=== PATIENT | female | born 2000 | race Caucasian/White ===

== ENCOUNTER 2023-05-11 19:04 | Outpatient (CLI) | payer BC, SELFPAY ==
[2023-05-11 18:24] LABS: Adenovirus,PCR Not Detected (NotDetected); Coronavirus 19, PCR Not Detected (NotDetected); Coronavirus 229E Not Detected (NotDetected); Coronavirus NL63 Not Detected (NotDetected); Coronavirus OC43 Not Detected (NotDetected); Coronovirus HKU1,PCR Not Detected (NotDetected); Human Metapneumovirus Not Detected (NotDetected); Influenza A, PCR Not Detected (NotDetected); Influenza AH1, 2009 Not Detected (NotDetected); Influenza AH1, PCR Not Detected (NotDetected); Influenza AH3,PCR Not Detected (NotDetected); Influenza B, PCR Not Detected (NotDetected); Parainfluenza 1, PCR Not Detected (NotDetected); Parainfluenza 2, PCR Not Detected (NotDetected); Parainfluenza 3, PCR Not Detected (NotDetected); Parainfluenza 4, PCR Not Detected (NotDetected); Respiratory Syncytial Virus Not Detected (NotDetected); Rhinovirus/Enterovirus Not Detected (NotDetected)
[2023-05-11 18:51] LABS: Basophils # 0.1 K/mm3 (0-0.2); Basophils % 1.1 % (0.1-2.0); Eosinophils # 0.1 K/mm3 (0.0-0.4); Eosinophils % 1.9 % (0.1-12.0); Hematocrit 45.2 % (37.0-47.0); Hemoglobin 14.5 g/dL (12.2-16.2); Lymphocytes # 1.6 K/mm3 (0.7-4.5); Lymphocytes % 24.7 % (10-50); Mean Corpuscular HGB Conc 31.9 g/dL (31.8-35.4); Mean Corpuscular Hemoglobin 29.9 pg (27.0-31.2); Mean Corpuscular Volume 93.5 fl (81-99); Monocytes # 0.3 K/mm3 (0.1-1.0); Monocytes % 4.7 % (1.7-9.3); Neutrophils # 4.4 K/mm3 (1.8-7.8); Neutrophils % 67.6 % (37.0-80.0); Platelet Count 244 K/mm3 (142-424); Red Blood Count 4.84 M/mm3 (4.20-5.40); Red Cell Distribution Width 13.4 % (11.5-17.5); White Blood Count 6.6 K/mm3 (4.8-10.8)
== END 2023-05-11 23:59 ==
LOC: LAB.DROPOF 19:04
PROVIDERS: PCP Nurse Practitioner; Visit Provider Nurse Practitioner
DX: J06.9 Acute upper respiratory infection, unspecified (principal); R51.9 Headache, unspecified; R07.0 Pain in throat
CPT/HCPCS: 85025; 87632; 87635

== ENCOUNTER 2023-12-26 14:03 | Outpatient (CLI) | payer BC, SELFPAY ==
[2023-12-26 14:44] LABS: Basophils # 0.1 K/mm3 (0-0.2); Basophils % 0.8 % (0.1-2.0); Eosinophils # 0.2 K/mm3 (0.0-0.4); Eosinophils % 2.9 % (0.1-12.0); Hematocrit 40.8 % (37.0-47.0); Hemoglobin 13.6 g/dL (12.2-16.2); Lymphocytes % 27.4 % (10-50); Mean Corpuscular HGB Conc 33.4 g/dL (31.8-35.4); Mean Corpuscular Hemoglobin 29.7 pg (27.0-31.2); Mean Corpuscular Volume 88.9 fl (81-99); Mean Platelet Volume 7.9 fl (7.4-10.4); Monocytes # 0.5 K/mm3 (0.1-1.0); Monocytes % 7.4 % (1.7-9.3); Neutrophils # 4.5 K/mm3 (1.8-7.8); Neutrophils % 61.6 % (37.0-80.0); Platelet Count 227 K/mm3 (142-424); Red Blood Count 4.59 M/mm3 (4.20-5.40); Red Cell Distribution Width 13.7 % (11.5-17.5); White Blood Count 7.3 K/mm3 (4.8-10.8)
[2023-12-26 15:41] LABS: Free T4 (Free Thyroxine) 0.86 ng/dl (0.78-2.19)
[2023-12-27 08:54] LABS: Thyroid Peroxidase Antibodies 16 IU/mL (0-34)
[2023-12-27 15:12] LABS: Thyroglobulin Level <1.0 IU/mL (0.0-0.9)
[2023-12-29 22:08] LABS: F092- IgE Banana <0.10 kU/L (Class 0)
[2023-12-30 15:37] LABS: F013-IgE Peanut <0.10 kU/L (Class 0); F017-IgE Hazelnut (Filbert) <0.10 kU/L (Class 0); F018-IgE Brazil Nut <0.10 kU/L (Class 0); F020-IgE Almond <0.10 kU/L (Class 0); F202-IgE Cashew Nut <0.10 kU/L (Class 0); F225-IgE Pumpkin <0.10 kU/L (Class 0); F256-IgE Walnut <0.10 kU/L (Class 0); F352 IgE Ara h8 <0.10 kU/L (Class 0); F447 IgE Ara h6 <0.10 kU/L (Class 0)
[2024-01-10 12:49] LABS: Antinuclear Antibodies, IFA POSITIVE
== END 2023-12-26 23:59 | disposition home or self-care (01) ==
LOC: LAB 14:05
PROVIDERS: Visit Provider Allergy & Immunology
DX: T78.00XA Anaphylactic reaction due to unspecified food, initial encounter (principal); L50.8 Other urticaria; Z91.010 Allergy to peanuts; Z13.29 Encounter for screening for other suspected endocrine disorder
CPT/HCPCS: 36415; 83520; 84439; 85025; 86003; 86008; 86038; 86352; 86376; 86800